=== PATIENT | female | born 1955 | race Two or more races ===

== ENCOUNTER → 2017-06-23 | Outpatient (CLI) | payer BC ==
[~2017-06-23] MED LIST: LEVO125T7 OR; ROSU10TA16 OR; TRIA25CA OR; VALS160T51 OR; [UNRECOGNIZED DRUG - OTHER]
== END | disposition home or self-care (01) ==
LOC: XYW 07:48
PROVIDERS: ATTEND Family Medicine
DX: I51.7 Cardiomegaly (principal)
CPT/HCPCS: 93306

== ENCOUNTER → 2017-12-01 | Outpatient (CLI) | payer BC ==
[~2017-12-01] VITALS: Ht 157.5 cm; Wt 65.8 kg
[~2017-12-01] MED LIST changes: +ADENOSINE 55 MG in GIVE UN-DILUTED 0 ML IV ONE
[2017-12-01 10:09] VITALS: BP 143/89
== END | disposition home or self-care (01) ==
LOC: XY 08:56
PROVIDERS: ATTEND Internal Medicine Cardiovascular Disease
DX: R06.02 Shortness of breath (principal); R07.89 Other chest pain
CPT/HCPCS: 93017; J0153; 78452

== ENCOUNTER → 2020-09-13 | Outpatient (CLI) | payer BC ==
[~2020-09-13] MED LIST changes: -ADENOSINE 55 MG in GIVE UN-DILUTED 0 ML IV ONE; +VALS160T4 OR; -VALS160T51 OR
== END | disposition home or self-care (01) ==
LOC: XYW 09:36
PROVIDERS: ATTEND Family Medicine
DX: I67.82 Cerebral ischemia (principal); D49.6 Neoplasm of unspecified behavior of brain; G93.89 Other specified disorders of brain
CPT/HCPCS: 70553; A9575

== ENCOUNTER → 2022-11-04 | Outpatient (CLI) | payer BC | END | disposition home or self-care (01) | LOC: RT 08:42 | PROVIDERS: ATTEND Student in an Organized Health Care Education/Training Program | DX: R06.00 Dyspnea, unspecified (principal); Z87.891 Personal history of nicotine dependence | CPT/HCPCS: 94060; 94727; 94729 ==

== ENCOUNTER → 2022-11-12 | Outpatient (CLI) | payer BC ==
[2022-11-12 08:01] LABS: Basophils # (auto) 0.1 10 ^3/uL (0-0.2); Basophils % (auto) 1.2 % (0.0-2.0); Eosinophils # (auto) 0.3 10 ^3/uL (0-0.8); Hematocrit 37.7 % (36.0-46.0); Hemoglobin 12.5 g/dL (12.2-16.2); Lymphocytes # (auto) 1.1 10 ^3/uL (0.4-5.4); Lymphocytes % (auto) 23.4 % (10.0-50.0); Mean Corpuscular Hemoglobin 30.1 pg (28.0-32.0); Mean Corpuscular Hgb Conc. 33.2 g/dL (32.0-36.0); Mean Corpuscular Volume 90.7 fL (80.0-100.0); Monocytes # (auto) 0.5 10 ^3/uL (0-1.3); Neutrophils # (auto) 2.8 10 ^3/uL (1.6-8.6); Neutrophils % (auto) 59.4 % (37.0-80.0); Nucleated Red Blood Cells % 0.1 %; Red Blood Cells 4.16 10^6/uL (4.0-5.20); Red Cell Distribution Width 13.1 % (11.8-14.3); White Blood Cell 4.7 10^3/uL (4.4-10.8)
[2022-11-12 08:21] LABS: Potassium 4.3 mmol/L (3.5-5.1)
[2022-11-12 08:30] LABS: Albumin 3.9 g/dL (3.4-5.0); BUN/Creatinine Ratio 30.9 (10.0-20.0); Bilirubin, Total 0.7 mg/dL (0.2-1.0); Calcium 9.1 mg/dL (8.5-10.1); Total Protein 6.9 g/dL (6.4-8.2)
== END | disposition home or self-care (01) ==
LOC: LAB 07:11
PROVIDERS: ATTEND Student in an Organized Health Care Education/Training Program
DX: Z12.11 Encounter for screening for malignant neoplasm of colon (principal); I10 Essential (primary) hypertension; E78.5 Hyperlipidemia, unspecified; E04.1 Nontoxic single thyroid nodule; E03.9 Hypothyroidism, unspecified
CPT/HCPCS: 36415; 80053; 80061; 82274; 84443; 85025